=== PATIENT | male | born 1960 | race Two or more races ===

== ENCOUNTER 2017-05-06 17:07 | Emergency (ER) | payer MEDICARE, OTHER ==
[~2017-05-06] VITALS: Ht 170.2 cm; Wt 74.8 kg
[2017-05-06] MEDS ORDERED: PREDNISONE20 MG ORAL (17:47)
[2017-05-06] MEDS ORDERED: BENADRYL25 MG ORAL (17:47)
[2017-05-06] MEDS ORDERED: RANITIDINE HCL150 MG ORAL (17:47)
[2017-05-06 18:07] VITALS: BP 122/78
--- NOTE | 2017-05-08 07:39 | Emergency Room Report ---
History of Present Illness General Chief Complaint: Skin Rash/Abscess Source: Patient Present Illness HPI Patient presents with a complaint of rash Mainly involving the lower jaw Bilaterally Patient also had noticed some on the upper shoulders and upper chest area Fairly itchy in nature The rash started yesterday Patient denies any change in medications Denies any fevers or chills denies any pain with the rash or tingling Patient's friend who is here reports that he had some similar rash after his dog licked him And the patient also has a dog who had been lifting him in the face area Allergies: Coded Allergies: No Known Allergies (Unverified , 06/10/14) Patient History Past Medical History: see triage record Pertinent Family History: none Reviewed Nursing Documentation: PMH: Agreed, PSxH: Agreed Nursing Documentation-PMH Hx Gastrointestinal Problems: Yes - hiv Review of Systems All Other Systems: negative except mentioned in HPI Physical Exam Vital Signs Date Time Temp Pulse Resp B/P (MAP) Pulse Ox O2 Delivery O2 Flow Rate FiO2 05/06/17 17:33 98.1 75 20 116/80 99 Room Air Sp02 EP Interpretation: reviewed, normal General Appearance: well appearing, no apparent distress Head: normocephalic, atraumatic Eyes: right eye PERRL, 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 ENT: hearing grossly normal, normal pharynx, TMs + canals normal, uvula midline Neck: full range of motion, supple, no meningismus, no bony tend Respiratory: lungs clear, normal breath sounds, no rhonchi, no respiratory distress, no retraction, no accessory muscle use Cardiovascular #1: normal peripheral pulses, regular rate, rhythm, no edema, no gallop, no JVD, no murmur Gastrointestinal: normal bowel sounds, non tender, soft, no mass, no organomegaly, non-distended, no guarding, no hernia, no pulsatile mass, no rebound Musculoskeletal: normal inspection Neurologic: oriented x3, responsive, cover seamer III-XII nml as tested, motor strength/ tone normal, sensory intact Psychiatric: mood/affect normal Skin: other - Area of erythematous rash involving the left mandibular, also the right lower mandibular region, areas blanching does not appear raised appears irregular, there is also a different mildly erythematous raised lesions on bilateral shoulders, does not appear to be sandpaper like in nature, there is no target cell appearance or dermatomal fashion, no sloughing of the skin,, Lymphatic: normal inspection, no adenopathy Medical Decision Making Diagnostic Impression: Primary Impression: Rash and other nonspecific skin eruption ER Course Etiology of the rash is not completely clear Patient does not appear to show signs of shingles Does not appear septic or toxic The rash does not appear to be petechiae in nature Patient will be treated symptomatically and requires close followup Last Vital Signs Date Time Temp Pulse Resp B/P (MAP) Pulse Ox O2 Delivery O2 Flow Rate FiO2 05/06/17 18:07 98.1 66 18 122/78 100 Room Air Status: unchanged Disposition: HOME, SELF-CARE Condition: Stable Scripts Ranitidine Hcl* (ZANTAC*) 150 Mg Tablet 150 MG ORAL TWICE A DAY, #30 TAB Prov: DONNA CASTILLO D.O. 05/06/17 Diphenhydramine Hcl* (BENADRYL*) 25 Mg Capsule 25 MG ORAL Q6H Y for Itching for 12 Days, CAP Prov: DONNA CASTILLO D.O. 05/06/17 Prednisone* (PREDNISONE*) 20 Mg Tablet 20 MG ORAL BID, #10 TAB Prov: DONNA CASTILLO D.O. 05/06/17 Referrals: NON PHYSICIAN (PCP) Patient Instructions: Rash Additional Instructions: Patient is provided with the discharge instructions notified to follow up with primary doctor in the next 2-3 days otherwise return to the er with any worsening symptoms. Please note that this report is being documented using [employer] technology. This can lead to erroneous entry secondary to incorrect interpretation by the dictating instrument. DONNA CASTILLO D.O. May 08, 2017 07:39
== END 2017-05-06 18:07 | disposition home or self-care (01) ==
LOC: EMR 18:07
DX: R21 Rash and other nonspecific skin eruption (principal); Z87.19 Personal history of other diseases of the digestive system
CPT/HCPCS: 99284

== ENCOUNTER 2017-12-02 22:54 | Emergency (ER) | payer MEDICARE, OTHER ==
[~2017-12-02] VITALS: Ht 167.6 cm; Wt 77.1 kg
[~2017-12-02 22:54] MED LIST: BENADRYL25 MG ORAL; PREDNISONE20 MG ORAL; RANITIDINE HCL150 MG ORAL
[2017-12-02] MEDS ORDERED: LORazepam Inj 2mg/ml 1ml IV ONE (23:15)
--- NOTE | 2017-12-02 23:15 | Emergency Room Report ---
History of Present Illness General Chief Complaint: Dyspnea/Respdistress Source: Patient Present Illness HPI Patient's 57-year-old male who presented after increased difficulty with breathing and bilateral hand and face numbness. The patient had onset of symptoms after smoking marijuana. He reports having increased cramping to both hands. Patient prior history of HIV.He denies any severe headache. He denies any fever. Allergies: Coded Allergies: No Known Allergies (Unverified , 06/10/14) Patient History Past Medical History: see triage record Reviewed Nursing Documentation: PMH: Agreed; PSxH: Agreed Nursing Documentation-PMH Past Medical History: No Stated History Hx Gastrointestinal Problems: Yes - hiv Review of Systems All Other Systems: negative except mentioned in HPI Physical Exam Vital Signs Date Time Temp Pulse Resp B/P (MAP) Pulse Ox O2 Delivery O2 Flow Rate FiO2 12/02/17 22:57 98.4 111 18 165/94 99 Room Air 98.4 Sp02 EP Interpretation: reviewed, normal General Appearance: normal inspection, well appearing, no apparent distress, alert, GCS 15, non-toxic Head: atraumatic ENT: normal ENT inspection, hearing grossly normal, normal voice Neck: normal inspection, full range of motion, supple, no bony tend Respiratory: normal inspection, lungs clear, normal breath sounds, no respiratory distress, no retraction, no wheezing Cardiovascular #1: regular rate, rhythm, no edema Gastrointestinal: normal inspection, normal bowel sounds, non tender, soft, no guarding, no hernia Genitourinary: no CVA tenderness Musculoskeletal: normal inspection, back normal, normal range of motion Neurologic: normal inspection, alert, oriented x3, responsive, clean rice broker III-XII nml as tested, speech normal Psychiatric: normal inspection, judgement/insight normal, mood/affect normal Skin: normal inspection, normal color, no rash Medical Decision Making Diagnostic Impression: Primary Impression: Dehydration Additional Impression: Dizziness ER Course Patient presented for shortness of breath. Differential included but was not limited to anemia, pneumonia, pneumothorax, myocardial infarction, pericardial effusion, congestive heart failure, acidosis. Because of complexity of patient' s case laboratory testing and imaging studies were ordered.The laboratory testing so showed evidence of hypokalemia as well as hyponatremia. The patient started on IV fluids and given oral potassium. The patient's also given IV Ativan with improvement of symptoms.The patient is advised to follow up with primary care doctor in 1-2 days. Patient is advised to return if any worsening condition or if any changes in status that are concerning. This report is dictated with [employer] smalltalk developer software which may occasionally lead to discrepancies related to use of this software. Labs Test 12/02/17 23:40 White Blood Count 7.9 K/UL (4.8-10.8) Red Blood Count 5.12 M/UL (4.70-6.10) Hemoglobin 15.1 G/DL (14.2-18.0) Hematocrit 43.9 % (42.0-52.0) Mean Corpuscular Volume 86 FL (80-99) Mean Corpuscular Hemoglobin 29.5 PG (27.0-31.0) Mean Corpuscular Hemoglobin Concent 34.4 G/DL (32.0-36.0) Red Cell Distribution Width 12.0 % (11.6-14.8) Platelet Count 150 K/UL (150-450) Mean Platelet Volume 6.8 FL (6.5-10.1) Neutrophils (%) (Auto) 54.7 % (45.0-75.0) Lymphocytes (%) (Auto) 36.3 % (20.0-45.0) Monocytes (%) (Auto) 6.3 % (1.0-10.0) Eosinophils (%) (Auto) 0.7 % (0.0-3.0) Basophils (%) (Auto) 2.0 % (0.0-2.0) Sodium Level 131 MMOL/L (136-145) Potassium Level 3.2 MMOL/L (3.5-5.1) Chloride Level 96 MMOL/L (98-107) Carbon Dioxide Level 19 MMOL/L (21-32) Anion Gap 16 mmol/L (5-15) Blood Urea Nitrogen 11 mg/dL (7-18) Creatinine 1.3 MG/DL (0.55-1.30) Estimat Glomerular Filtration Rate 56.9 mL/min (>60) Glucose Level 169 MG/DL (74-106) Calcium Level 8.8 MG/DL (8.5-10.1) Total Bilirubin 0.4 MG/DL (0.2-1.0) Aspartate Amino Transf (AST/SGOT) 22 U/L (15-37) Alanine Aminotransferase (ALT/SGPT) 39 U/L (12-78) Alkaline Phosphatase 63 U/L (46-116) Troponin I 0.000 ng/mL (0.000-0.056) Total Protein 7.9 G/DL (6.4-8.2) Albumin 4.4 G/DL (3.4-5.0) Globulin 3.5 g/dL Albumin/Globulin Ratio 1.3 (1.0-2.7) EKG Diagnostic Results Rate: normal - 89 Rhythm: NSR ST Segments: no acute changes Last Vital Signs Date Time Temp Pulse Resp B/P (MAP) Pulse Ox O2 Delivery O2 Flow Rate FiO2 12/02/17 22:57 98.4 111 18 165/94 99 Room Air 98.4 Status: improved Disposition: HOME, SELF-CARE Condition: Stable Scripts Lorazepam* (ATIVAN*) 0.5 Mg Tablet 0.5 MG ORAL THREE TIMES A DAY, #10 TAB Prov: Kirill Vo MD 12/03/17 Kirill Vo MD Dec 02, 2017 23:15
[2017-12-03 00:04] LABS: EOSINOPHILS % (AUTO) 0.7 % (0.0-3.0); HEMATOCRIT 43.9 % (42.0-52.0); HEMOGLOBIN 15.1 G/DL (14.2-18.0); LYMPHOCYTES % (AUTO) 36.3 % (20.0-45.0); MEAN CORPUSCULAR VOLUME 86 FL (80-99); MONOCYTES % (AUTO) 6.3 % (1.0-10.0); NEUTROPHILS % (AUTO) 54.7 % (45.0-75.0); PLATELET COUNT 150 K/UL (150-450); RED BLOOD COUNT 5.12 M/UL (4.70-6.10); WHITE BLOOD COUNT 7.9 K/UL (4.8-10.8)
[2017-12-03 00:26] LABS: ALANINE AMINOTRANSFERASE 39 U/L (12-78); ALBUMIN 4.4 G/DL (3.4-5.0); ALBUMIN/GLOBULIN RATIO 1.3 (1.0-2.7); ALKALINE PHOSPHATASE 63 U/L (46-116); ANION GAP 16 mmol/L (5-15); ASPARTATE AMINO TRANSFERASE 22 U/L (15-37); BILIRUBIN,TOTAL 0.4 MG/DL (0.2-1.0); BLOOD UREA NITROGEN 11 mg/dL (7-18); CALCIUM 8.8 MG/DL (8.5-10.1); CARBON DIOXIDE 19 MMOL/L (21-32); CHLORIDE 96 MMOL/L (98-107); CREATININE 1.3 MG/DL (0.55-1.30); POTASSIUM 3.2 MMOL/L (3.5-5.1); SODIUM 131 MMOL/L (136-145)
[2017-12-03] MEDS ORDERED: Sodium Chloride 500ML 500 ML IV ONE (01:00)
[2017-12-03] MEDS ORDERED: ATIVAN0.5 MG ORAL (01:53)
[2017-12-03 02:38] VITALS: BP 148/84
[2017-12-03 02:40] VITALS: BP 148/84
== END 2017-12-03 02:40 | disposition home or self-care (01) ==
LOC: EMR 23:19
DX: E86.0 Dehydration (principal); R42 Dizziness and giddiness
CPT/HCPCS: 36415; 80053; 84484; 85025; 96374; 99284; J7040; J8499

== ENCOUNTER 2019-07-29 12:39 | Emergency (ER) | payer MEDICARE, OTHER ==
[~2019-07-29] VITALS: Ht 170.2 cm; Wt 81.6 kg
[~2019-07-29 12:39] MED LIST changes: +ATIVAN0.5 MG ORAL
[2019-07-29 12:42] VITALS: BP 130/85
[2019-07-29] MEDS ORDERED: ZITHROMAX250 MG ORAL (13:11)
--- NOTE | 2019-07-29 13:11 | Emergency Room Report ---
History of Present Illness General Chief Complaint: Sore Throat Present Illness HPI 59-year-old male with history of HIV positive currently taking his medication and up-to-date with his visits with his infectious disease doctor, here complaining of 2 days of sore throat. Denies any cough and congestion, fever and chills, recent travel. Reports that his mom recently got back from [facility] and lives with him. Mom is 83 years old however is asymptomatic. Patient reports that he has already isolated himself in the house from his mom. Is sitting comfortably with stable vital signs. Has not taken medication for symptom relief. Patient has obvious white patches bilaterally. Denies any chest pain shortness of breath at this time. Denies diarrhea, abdominal pain, nausea vomiting. Denies any loss of sense of taste or smell. COVID-19 risk:Contact w/high r: Yes COVID-19 risk:Travel to affect: Yes Has patient experienced zepeda: No Allergies: Coded Allergies: No Known Allergies (Unverified , 06/10/14) Patient History Past Medical History: see triage record Past Surgical History: none Pertinent Family History: none Immunizations: UTD Reviewed Nursing Documentation: PMH: Agreed; PSxH: Agreed Nursing Documentation-PMH Hx Gastrointestinal Problems: Yes - hiv Review of Systems All Other Systems: negative except mentioned in HPI Physical Exam Vital Signs Date Time Temp Pulse Resp B/P (MAP) Pulse Ox O2 Delivery O2 Flow Rate FiO2 07/29/19 12:39 98.2 81 22 130/85 (100) 95 Room Air Sp02 EP Interpretation: reviewed, normal General Appearance: no apparent distress, alert, GCS 15, non-toxic Head: normocephalic, atraumatic Eyes: bilateral eye normal inspection, bilateral eye PERRL ENT: hearing grossly normal, no angioedema, normal voice, pharyngeal erythema, tonsillar exudate Neck: full range of motion, supple, supple/symm/no masses Respiratory: chest non-tender, lungs clear, normal breath sounds, no rhonchi, no wheezing, speaking full sentences Cardiovascular #1: regular rate, rhythm, no edema, no murmur Gastrointestinal: soft Genitourinary: no CVA tenderness Musculoskeletal: back normal Neurologic: alert Psychiatric: judgement/insight normal Skin: no rash Lymphatic: normal inspection Medical Decision Making PA Attestation All my diagnosis and treatment plans were reviewed ad discussed with my supervising physician Dr. Flores Diagnostic Impression: Primary Impression: Strep pharyngitis Additional Impression: URI (upper respiratory infection) ER Course 59-year-old male with history of HIV positive currently taking his medication and up-to-date with his visits with his infectious disease doctor, here complaining of 2 days of sore throat. Denies any cough and congestion, fever and chills, recent travel. Reports that his mom recently got back from [facility] and lives with him. Mom is 83 years old however is asymptomatic. Patient reports that he has already isolated himself in the house from his mom. Is sitting comfortably with stable vital signs. Has not taken medication for symptom relief. Patient has obvious white patches bilaterally. Denies any chest pain shortness of breath at this time. Denies diarrhea, abdominal pain, nausea vomiting. Denies any loss of sense of taste or smell. Ddx considered but are not limited to: Coronavirus, strep pharyngitis, URI, tonsillitis, peritonsillar abscess, influneza Vital signs: are WNL, pt. is afebrile H&PE are most consistent with: Strep pharyngitis, URI ORDERS: Azithromycin, Tylenol ED INTERVENTIONS: None required at this time. DISCHARGE: At this time pt. is stable for d/c to home. Will provide printed patient care instructions, and any necessary prescriptions. Care plan and follow up instructions have been discussed with the patient prior to discharge. Take medication as directed, follow-up with your primary doctor, you need to stay home for self quarantine due to Covid 19 precautions for 14 days Last Vital Signs Date Time Temp Pulse Resp B/P (MAP) Pulse Ox O2 Delivery O2 Flow Rate FiO2 07/29/19 12:42 98.2 81 22 130/85 95 Room Air Disposition: HOME, SELF-CARE Condition: Stable Scripts Azithromycin* (ZITHROMAX*) 250 Mg Tablet 250 MG ORAL DAILY, #6 TAB 0 Refills Take two tables once daily for 1 day, then one tablet once daily for 4 days. Prov: Julio C Alejo 07/29/19 Patient Instructions: Upper Respiratory Infection, Additional Instructions: Take medication as directed, follow-up primary care provider, take medication as directed, follow-up with your primary doctor, you need to stay home for self quarantine due to Covid 19 precautions for 14 days Julio C Alejo Jul 29, 2019 13:11
[2019-07-29 13:22] VITALS: BP 127/80
== END 2019-07-29 13:22 | disposition home or self-care (01) ==
LOC: EMR 13:16
DX: J02.0 Streptococcal pharyngitis (principal); J06.9 Acute upper respiratory infection, unspecified; B20 Human immunodeficiency virus [HIV] disease; Z03.818 Encounter for observation for suspected exposure to other biological agents ruled out
CPT/HCPCS: 99282

== ENCOUNTER 2019-10-10 17:34 | Emergency (ER) | payer MEDICARE, OTHER ==
[~2019-10-10] VITALS: Ht 170.2 cm; Wt 81.6 kg
[~2019-10-10 17:34] MED LIST changes: +ZITHROMAX250 MG ORAL
[2019-10-10 18:02] VITALS: BP 136/98
--- NOTE | 2019-10-10 18:27 | Emergency Room Report ---
History of Present Illness General Chief Complaint: Eye Problems Source: Patient Present Illness HPI 59 YO Male presents to the ED c/o Left eye redness, discharge, and increased lacrimation x 3 days. Hx of HIV. Pt. reports normal CD4 count. He denies eye itching/scratching sensation. Pt. denies notable fb of the eye. 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 Pt. denies photophobia. Pt. denies nasal, or sinus pain or pressure. Pt. denies recent eye trauma. He denies pain with eye movements. PT. denies fevers or chills. He denies HILLS. Pt. denies dental pain or recent dental procedures. Allergies: Coded Allergies: No Known Allergies (Unverified , 06/10/14) COVID-19 Screening Contact w/high risk pt: No Recent Travel to affected area: No Experienced COVID-19 symptoms?: No COVID-19 Testing performed CLASSIFICATION CLERK: No Patient History Past Medical History: none, HIV Past Surgical History: none Pertinent Family History: none Immunizations: UTD Reviewed Nursing Documentation: PMH: Agreed; PSxH: Agreed Nursing Documentation-PMH Past Medical History: No History, Except For Hx Gastrointestinal Problems: Yes - hiv Review of Systems All Other Systems: negative except mentioned in HPI Physical Exam Vital Signs Date Time Temp Pulse Resp B/P (MAP) Pulse Ox O2 Delivery O2 Flow Rate FiO2 10/10/19 17:41 98.2 76 16 136/98 (111) 96 Sp02 EP Interpretation: reviewed, normal General Appearance: no apparent distress, alert, GCS 15, non-toxic Head: normocephalic, atraumatic Eyes: left eye abnormal pupil, left eye lid inflammation - lower left, left eye other - Left eye is significantly deformed, no pupil, scant opaque line across the midline suspicious for keratitis, there is moderate amt. of purulent d/c, lower lid swelling with erythema, and inflammed hordeoleum of the lateral lower left eyelid. NO pain with EOMI, conjunctival injection noted, No scleral injection/erythema. Pt. is blind in left eye. no visible FB on lid flip. ; bilateral eye normal inspection ENT: hearing grossly normal, normal voice Neck: full range of motion Respiratory: lungs clear, normal breath sounds, speaking full sentences Cardiovascular #1: regular rate, rhythm Musculoskeletal: gait/station normal Neurologic: alert, motor strength/tone normal, oriented x3, sensory intact, responsive, speech normal Psychiatric: judgement/insight normal Skin: other - erythema, warmth and swelling to the lower left eyelid. Lymphatic: no adenopathy Medical Decision Making PA Attestation Dr. Flores is my supervising Physician whom patient management has been discussed with. Diagnostic Impression: Primary Impression: Preseptal cellulitis of left eye Additional Impressions: Conjunctivitis Qualified Codes: H10.32 - Unspecified acute conjunctivitis, left eye Possible keratitis History of immune disorder ER Course 59 YO Male presents to the ED c/o Left eye redness, discharge, and increased lacrimation x 3 days. Hx of HIV. Pt. reports normal CD4 count. He denies eye itching/scratching sensation. Pt. denies notable fb of the eye. 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 Pt. denies photophobia. Pt. denies nasal, or sinus pain or pressure. Pt. denies recent eye trauma. He denies pain with eye movements. PT. denies fevers or chills. He denies HILLS. Pt. denies dental pain or recent dental procedures. Ddx considered but are not limited to: corneal abrasion, acute glaucoma, globe rupture, FB, Corneal Ulcer, conjunctivitis. Iridis, orbital cellulitis,keratitis , sinusitis, preseptal/ orbital cellulitis, hordeolum, Vital signs: are WNL, pt. is afebrile. H&PE are most consistent with: Bacterial conjunctivitis, and preseptal cellulitis in pt. with immune compromise and pre-existing eye injury/ abnormality with significant deformity. 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 ORDERS: none at this time. ED INTERVENTIONS: none at this time. D/W PT: Given his medical history and significant eye symptoms Ophthalmologic expertise is required and very necessary. -Evaluation for keratitis or more serious eye infections that would require prolonged and more aggressive treatments need to be evaluated for. Pt. verbalizes his understanding and agreement with this treatment plan in addition to being prescribed antibiotic therapy. Pt. is Given Ophthalmology referrals for Dr. Bingham and Dr. Nieto. Pt. is treated with aggressive antibiotic regimen to cover for most common as well as microbes pertinent to HIV/immune compromise considerations. Pt. given strict ED return precautions, including inability to follow up with Ophtho. DISCHARGE: At this time pt. is stable for d/c to home. Will provide printed patient care instructions, and any necessary prescriptions. Care plan and follow up instructions have been discussed with the patient prior to discharge. Last Vital Signs Date Time Temp Pulse Resp B/P (MAP) Pulse Ox O2 Delivery O2 Flow Rate FiO2 10/10/19 18:02 98.2 16 136/98 96 10/10/19 17:41 76 Disposition: HOME, SELF-CARE Condition: Stable Scripts Moxifloxacin HCl (Vigamox) 3 Ml Drops 1 DROP LEFT EYE THREE TIMES A DAY for 7 Days, #3 ML 0 Refills Prov: Tawnya Lozano 10/10/19 Amoxicillin/Potassium Clav 875-125* (AUGMENTIN 875-125 TABLET*) 1 Each Tablet 1 TAB ORAL TWICE A DAY for 7 Days, #14 TAB Prov: Tawnya Lozano 10/10/19 Trimethoprim/Sulfamethoxazole 160/800* (BACTRIM DS TABLET*) 1 Each Tablet 1 TAB ORAL TWICE A DAY for 7 Days, #14 TAB Prov: Tawnya Lozano 10/10/19 Referrals: Ernie Bingham MD, Maziar M.D. MD Patient Instructions: Bacterial Conjunctivitis, [id number], Preseptal Cellulitis, Adult Additional Instructions: !! !!! Given your medical history and significant eye symptoms Ophthalmologic expertise is required and very necessary. -Evaluation for keratitis or more serious eye infections that would require prolonged and more aggressive treatments need to be evaluated for. !!!!! Take medications as directed. Follow up with an T[facility]et Adjuster as well as your Primary Care Provider in 3 -5 days, even if your symptoms have resolved. --Please review list of Tappet Adjuster , if you do not already have a primary care provider who can provide you a referral on an Urgent basis. Return sooner to ED if new symptoms occur, or current symptoms become worse. - Please note that this Emergency Department Report was dictated using [employer] technology software, occasionally this can lead to erroneous entry secondary to interpretation by the dictation equipment. Tawnya Lozano Oct 10, 2019 18:27
[2019-10-10] MEDS ORDERED: VIGAMOX1 DROP LEFT EYE (18:35)
[2019-10-10] MEDS ORDERED: BACTRIM DS TAB1 EAC1 ORAL (18:35)
[2019-10-10] MEDS ORDERED: AUGMENTIN 875-1 EAC1 ORAL (18:35)
[2019-10-10 18:40] VITALS: BP 136/98
== END 2019-10-10 19:00 | disposition home or self-care (01) ==
LOC: EMR 18:00
DX: L03.213 Periorbital cellulitis (principal); H10.32 Unspecified acute conjunctivitis, left eye; B20 Human immunodeficiency virus [HIV] disease; H54.62 Unqualified visual loss, left eye, normal vision right eye
CPT/HCPCS: 99282